=== PATIENT | male | born 1960 | race Two or more races ===

== ENCOUNTER 2018-01-18 19:59 | Inpatient (IN) | payer OTHER ==
[~2018-01-18] VITALS: Ht 167.6 cm; Wt 93.0 kg
--- NOTE | 2018-01-18 20:00 | NUR ---
PT BIBA#60 FROM HOME, PT C/O OVERALL ABD PAIN X 4 HOURS DENIES N/V/D. NAD NOTED, VSS, RESP EVEN AND UNLABORED, PT WAS PUT ON MONITOR. WAITING FOR MD ANN.
[2018-01-18] MEDS ORDERED: HYDROMORPHONE INJ 2 MG/ML DISP.SYRIN ONE ×5 (20:17→23:52)
[2018-01-18] MEDS ORDERED: ONDANSETRON HCL/PF 4 MG/2 ML VIAL ONE (20:18)
[2018-01-18 20:29] LABS: BASOPHILS # (AUTO) 0.3 /CMM (0.0-0.2); BASOPHILS % (AUTO) 2.3 % (0.0-2.0); EOSINOPHILS # (AUTO) 0.1 /CMM (0.0-0.7); EOSINOPHILS % (AUTO) 0.6 % (0.0-6.0); HEMATOCRIT 47 % (39-51); HEMOGLOBIN 16.1 g/dL (13.5-17.5); LYMPHOCYTES # (AUTO) 1.1 /CMM (0.8-4.8); LYMPHOCYTES % (AUTO) 8.9 % (20.0-44.0); MEAN CORPUSCULAR HEMOGLOBIN 32 PG (26.0-33.0); MEAN CORPUSCULAR HGB CONC 34 g/dl (31.0-36.0); MEAN CORPUSCULAR VOLUME 93 fL (80-96); MONOCYTES # (AUTO) 0.7 /CMM (0.1-1.30); MONOCYTES % (AUTO) 5.6 % (2.0-12.0); NEUTROPHILS # (AUTO) 10.5 /CMM (1.8-8.9); NEUTROPHILS % (AUTO) 82.6 % (43.0-81.0); PLATELET COUNT (AUTO) 226 /CMM (150-450); RDW COEFFICIENT OF VARIATION 12.8 (11.5-15.0); RED BLOOD CELL COUNT(AUTO) 5.08 MIL/uL (4.5-6.0); WHITE BLOOD COUNT (AUTO) 12.7 K/uL (4.3-11.0)
[2018-01-18] MEDS ORDERED: HYDROMORPHONE 1 MG/1 ML DISP.SYRIN IV ONE ×3 (20:30→21:30)
[2018-01-18] MEDS ORDERED: PIPERACILLIN /TAZOBACTAM 3.375 G in IV D5W 50 ML IV ONE (20:30)
[2018-01-18] MEDS ORDERED: ONDANSETRON HCL/PF 4 MG/2 ML VIAL IV ONE (20:30)
[2018-01-18] MEDS ORDERED: IV NS 0.9% 1,000 ML BAG IV ONE ×3 (20:30→21:30)
[2018-01-18 20:39] LABS: LIPASE 136 U/L (73-393)
[2018-01-18 20:47] LABS: TROPONIN I < 0.017 ng/mL (0.00-0.056)
[2018-01-18 20:50] LABS: CALCIUM, SERUM 9.4 mg/dL (8.5-10.1); POTASSIUM 3.6 mmol/L (3.5-5.1)
[2018-01-18] MEDS ORDERED: IOHEXOL-300 100 ML VIAL IV ONE (20:53)
[2018-01-18] MEDS ORDERED: IV NS 0.9% 250 ML IV ONE (20:53)
[2018-01-18 21:03] LABS: ALBUMIN 3.9 g/dL (3.4-5.0); BILIRUBIN,TOTAL 0.7 mg/dL (0.2-1.0); TOTAL PROTEIN, SERUM 8.1 g/dL (6.4-8.2)
[2018-01-18] MEDS ORDERED: FENTANYL PF 100MCG/2ML AMPUL IV STA (21:32)
[2018-01-18] MEDS ORDERED: FENTANYL PF 100MCG/2ML AMPUL ONE (21:36)
--- NOTE | 2018-01-18 22:24 | NUR ---
PT TO 306-2
[2018-01-18 22:45] VITALS: BP 123/69
--- NOTE | 2018-01-18 23:00 | NUR ---
AIR DEFENSE ARTILLERY SENIOR SERGEANT NOTE RECEIVED PATIENT FROM ER, PATIENT LOOKS DROWSY AND WEAK, CURRENTLY GETTING O2 3L/MIN VIA NC, NO ACUTE RESPIRATORY DISTRESS NOTED. PT COMPLAINS OF PAIN ON HIS ABDOMEN, IV PAIN MED GIVEN AT ER, PATIENT IS SCHEDULED FOR EMERGENCY SURGERY; EXPLATORY LAPAROSCOPY. FAMILY WAS INFORMED ABOUT THE PROCEDURE. GOT SIGNATURES ON THE CONSENTS AND CHECKLIST COMPLETED. IV ON LEFT WRIST 20G, 18G ON AC ARE PATENT AND INTACT. CALL LIGHT WITHIN REACH, SRX2, BED IN LOW POSITION, WILL CONTINUE TO MONITOR PATIENT.
[2018-01-18] MEDS ORDERED: BUPIVACAINE 0.25% 75 MG/30 ML VIAL ONE (23:01)
[2018-01-18] MEDS ORDERED: LIDOCAINE 0.5% HCL 50 ML VIAL ONE (23:01)
[2018-01-18] MEDS ORDERED: ANESTHESIA TRAY IN PYXIS 1 EA TRAY MC ONE (23:01)
[2018-01-18 23:06] LABS: INR 0.96 (0.87-1.13)
[2018-01-18] MEDS ORDERED: ROCURONIUM BROMIDE 50 MG/5 ML ONE (23:22)
--- NOTE | 2018-01-18 23:25 | NUR ---
METAL CASKET ASSEMBLER NOTE PATIENT WENT DOWN FOR THE SURGERY. REPORT GIVEN TO SURGERY NURSE.
[2018-01-18 23:30] VITALS: BP 123/69
[2018-01-18] MEDS ORDERED: FENTANYL PF 250MCG/5ML AMPUL ONE (23:47)
[2018-01-19] VITALS (58 sets, daily range): BP systolic 78–127; BP diastolic 45–78
[2018-01-19] MEDS ORDERED: BACITRACIN 50000 UNITS/VIAL ONE (00:37)
--- NOTE | 2018-01-19 02:57 | NUR ---
REPORT GIVEN TO [facility] FACILITIES SPECIALIST. PATIENT WILL BE TRANSFERRED TO ICU AFTER SX.
[2018-01-19] MEDS ORDERED: VANCOMYCIN 1.25 GM in IV D5W 250 ML IV ONE (03:30)
[2018-01-19] MEDS ORDERED: VANCOMYCIN 1 GM VIAL ONE ×2 (03:36→03:41)
[2018-01-19] MEDS: IV NS 0.9% 1,000 ML IV PRN (03:44)
[2018-01-19] MEDS ORDERED: ALBUMIN 5% 500 ML IV ONE (03:48)
[2018-01-19] MEDS ORDERED: LEVALBUTEROL HCL NEB 1.25 MG/0.5 ML VIAL.NEB ONE (04:11)
[2018-01-19] MEDS ORDERED: LEVALBUTEROL HCL NEB 1.25 MG/0.5 ML VIAL.NEB NEB PRN ×2 (04:30)
[2018-01-19] MEDS ORDERED: ALBUMIN 5% 12.5 GM in PREMIX 1 EA IV ONE (04:30)
[2018-01-19] MEDS ORDERED: ALBUMIN IV ONE ×4 (04:30)
[2018-01-19 04:58] LABS: BASOPHILS % (AUTO) 0.2 % (0.0-2.0); EOSINOPHILS % (AUTO) 0.1 % (0.0-6.0); HEMATOCRIT 37 % (39-51); HEMOGLOBIN 12.7 g/dL (13.5-17.5); LYMPHOCYTES # (AUTO) 0.4 /CMM (0.8-4.8); LYMPHOCYTES % (AUTO) 12.5 % (20.0-44.0); MEAN CORPUSCULAR HEMOGLOBIN 32 PG (26.0-33.0); MEAN CORPUSCULAR HGB CONC 35 g/dl (31.0-36.0); MEAN CORPUSCULAR VOLUME 94 fL (80-96); MONOCYTES # (AUTO) 0.1 /CMM (0.1-1.30); MONOCYTES % (AUTO) 4.3 % (2.0-12.0); NEUTROPHILS # (AUTO) 2.8 /CMM (1.8-8.9); NEUTROPHILS % (AUTO) 82.9 % (43.0-81.0); PLATELET COUNT (AUTO) 170 /CMM (150-450); RED BLOOD CELL COUNT(AUTO) 3.92 MIL/uL (4.5-6.0); WHITE BLOOD COUNT (AUTO) 3.4 K/uL (4.3-11.0)
[2018-01-19] MEDS ORDERED: PIPERACILLIN /TAZOBACTAM 2.25 G VIAL IV ONE (04:58)
[2018-01-19] MEDS: HYDROMORPHONE INJ 2 MG/ML DISP.SYRIN IV PRN ×4 (05:13→22:59)
[2018-01-19] MEDS: PIPERACILLIN /TAZOBACTAM 4.5 G in IV NS 0.9% 50 ML IV SCH ×4 (05:14→23:23)
[2018-01-19 05:17] LABS: ALBUMIN 2.2 g/dL (3.4-5.0); BILIRUBIN,DIRECT 0.5 mg/dL (0.0-0.2); CALCIUM, SERUM 7.4 mg/dL (8.5-10.1); CREATININE 1.1 mg/dL (0.6-1.3); MAGNESIUM 2.7 mg/dL (1.8-2.4); POTASSIUM 3.6 mmol/L (3.5-5.1); TOTAL PROTEIN, SERUM 4.7 g/dL (6.4-8.2)
[2018-01-19 05:18] LABS: THYROID STIMULATING HORMONE 1.261 uIU/mL (0.358-3.74)
--- NOTE | 2018-01-19 05:40 | NUR ---
MACHINE CELL TUBER.[id number] RECEIVING THE PT FROM OR VIA BED. S/P EX LAPAROTOMY ,SIGMOIDECTOMY , LT SIDE COLOSTOMY . BAG INTACT. ORALLY INTUBATED. PT WAS ON SIMV MODE DR HUTCHINS OIL HEATERMAN AT BED SIDE, 0340 PT BEING EXTUBATED, BREATHING TREATMENT ONCE GIVEN. PT AWAKE, ALERT. FOLLOW COMMANDS. BUTTON BREAKER OPERATOR SHOWING S TACH. OXYGEN 6L VIA MASK. SAT 98%. NO ACUTE DISTRESS NOTED. SURGICAL DRESSING INTACT. DRESSING DRY. NO LEAKING NOTED. FC PATENT. RT NARE NGT LOW INTERMITTENT SUCTION. AFEBRILE. IV RT AND LT HAND 20G. IVF NS 75ML/H,ALBUMIN 500MLIV GIVEN PER CUONG AGUILAR.PT IS NPO. WILL CONTINUE TO MONITOR VITALS.
--- NOTE | 2018-01-19 06:53 | NUR ---
HVAC DESIGNER. CRITICAL LAB CALLED FOR LACTIC ACID 4.9. PAGED DR YEUNG . NEW ORDER RECEIVED. IVF NS 1L BOLUS GIVEN.
[2018-01-19] MEDS ORDERED: IV NS 0.9% 1,000 ML IV PRN (07:00)
[2018-01-19] MEDS ORDERED: FEE PK DOSING 1 MIN EA MC ONE (07:48)
--- NOTE | 2018-01-19 08:24 | NUR ---
ICU/RN INITIAL NOTES,AM RECEIVED REPORT FROM NIGHT NURSE. RECEIVED PT ALERT, FOLLOWS COMMANDS, DROWSY FROM ANAESTHESIA. PT ON ON SIMPLE MASK, TOLERATING WELL, O2 SAT >95%, NO ACUTE DISTRESS NOTED. PT SINUS TACHYCARDIA ON TELE. PAIN LEVEL ASSESSED, PT DENIES PAIN MEDICATIONS AT THIS TIME. ALBUMIN INFUSING PER MD ORDER. RIGHT WRIST AND LEFT WRIST PIV PATENT AND INTACT, NO S/S OF INFECTION OR INFILTRATION NOTED. IV FLUIDS INFUSING ORDERED. [place] CATH IN PLACE, DRAINING YELLOW URINE. SURGICAL SITE ASSESSED, DRESSING C/D/I. COLOSTOMY BAG NOTED, MINIMAL OUTPUT NOTED. PT CURRENTLY NPO. ALL NEEDS WILL BE ATTENDED TO, SAFETY MEASURES TAKEN, BED IN LOW POSITION, SIDE RIALS UP, CALL LIGHT WITHIN REACH. WILL CONTINUE TO MONITOR AND ASSESS.
[2018-01-19] MEDS: ENOXAPARIN SODIUM 40 MG/0.4 ML DISP.SYRIN SQ SCH (09:00)
--- NOTE | 2018-01-19 09:50 | NUR ---
ICU/RN: CLARIFIED WITH REGARDING LOVENOX ORDER. PER MD TO HOLD AM DOSE.
--- NOTE | 2018-01-19 11:00 | NUR ---
RT NOTE CANCELLED ABG PER DR. HARRIS, CSO, ORDER. PATIENT STABLE WITH NO DISTRESS NOTED. PATIENT TOLERATING NASAL CANNULA WELL.
--- NOTE | 2018-01-19 16:45 | NUR ---
ICU/RN: PER MD ORDERS. PT OUT OF BED TO CHAIR. INCENTIVE SPIROMETER AT BEDSIDE. INSTRUCTED PT HOW TO USE. PT TOLERATED TRANSFER WELL, ON NASAL CANULA, NO DISTRESS. ORDERS FOR PT ORDERED. WILL FOLLOW THROUGH.
[2018-01-19] MEDS: VANCOMYCIN 1.25 GM in IV D5W 500 ML IV SCH (17:37)
--- NOTE | 2018-01-19 18:46 | NUR ---
ICU/RN ENDING NOTES,AM REPORT WILL BE ENDORSED TO NIGHT NURSE FOR CONTINUATION OF CARE. ALL NEEDS ATTENDED TO. PT ON NASAL CANULA, NO ACUTE DISTRESS NOTED AT THIS TIME. NG TO LIS, MINIMAL OUTPUT NOTED. ABDOMINAL INCISION DRESSING CLEAN, DRY AND INTACT, NO S/S OF BLEEDING NOTED. COLOSTOMY BAG IN PLACE, SANGUINOUS DRAINAGE NOTED (150 ML). FAMILY AT BEDSIDE, ALL NEEDS ATTENDED TO, TURNED REPOSITIONED, LINENS CHANGED. BED IN LOW POSITION, SIDE RAILS UP,CALL LIGHT WITHIN REACH. WILL CONTINUE CARE.
--- NOTE | 2018-01-19 19:12 | NUR ---
Patient is alert, he lives at home with family. Prior to admit- he was ambulatory and independent with adl's. Has no DME or homehealth reported.Currently in ICU pod#0 s/p explore lap for perforated bowel.Family are involved and supportive. Current plan is to dc home when discharge. Addendum: 01/19/18 at 2 by LAYLA CHI RN Amended: Links added.
--- NOTE | 2018-01-19 19:30 | NUR ---
ICU/RN NOTES: RECEIVED PT. IN BED W/ HOB ELEVATED. A/O X 4. W/ O2 @4LPM VIA N/C SAT 96%. NO S/S OF ANY RESPIRATORY DISTRESS NOTED. DENIES ANY C/O PAIN OR SOB AT PRESENT. ON TELE MONITOR W/ SINUS TACHYCARDIA W/ 115. HAS RIGHT WRIST G 20 PATENT AND INTACT W/ NO S/S OF INFECTION/INFILTRATION NOTED. HAS LT. WRIST G 20 PATENT AND INTACT W/ NO S/S OF INFECTION/INFILTRATION NOTES W/ IVF OF NS @ 75 ML/HR. NOTED W/ RIGHT NARE NGT TO LOW INTERMITTENT SUCTION. MAINTAINED NPO STATUS. SURGICAL SITE DRESSING C/D/I. COLOSTOMY BAG NOTED W/ MINIMAL OUTPUT NOTED. W/ F/C PATENT AND INTACT DRAINING DANNIE COLOR URINE VIA GRAVITY. CALL LIGHT W/ REACH. ALL NEEDS MEET AND ATTENDED.
[2018-01-20] VITALS (20 sets, daily range): BP systolic 94–124; BP diastolic 53–106
--- NOTE | 2018-01-20 04:00 | NUR ---
NEWS WRITER NOTE CONTINUITY OF CARE RECEIVED FROM YURIDIA. WILL CONTINUE TO MONITOR.
--- NOTE | 2018-01-20 04:07 | NUR ---
RN/ ICU NOTES: REPORT GIVEN TO RN. FRANCIS FOR RICHARDSON.
[2018-01-20] MEDS: HYDROMORPHONE INJ 2 MG/ML DISP.SYRIN IV PRN ×5 (04:26→22:42)
[2018-01-20] MEDS: VANCOMYCIN 1.25 GM in IV D5W 500 ML IV SCH ×2 (04:30→18:47)
[2018-01-20] MEDS: IV NS 0.9% 1,000 ML IV PRN ×2 (04:43→22:34)
[2018-01-20] MEDS: PIPERACILLIN /TAZOBACTAM 4.5 G in IV NS 0.9% 50 ML IV SCH ×4 (05:32→23:07)
[2018-01-20 05:47] LABS: BASOPHILS # (AUTO) 0.2 /CMM (0.0-0.2); BASOPHILS % (AUTO) 1.9 % (0.0-2.0); HEMATOCRIT 35 % (39-51); HEMOGLOBIN 11.9 g/dL (13.5-17.5); LYMPHOCYTES # (AUTO) 0.5 /CMM (0.8-4.8); LYMPHOCYTES % (AUTO) 5.5 % (20.0-44.0); MEAN CORPUSCULAR HEMOGLOBIN 32 PG (26.0-33.0); MEAN CORPUSCULAR HGB CONC 34 g/dl (31.0-36.0); MEAN CORPUSCULAR VOLUME 94 fL (80-96); MONOCYTES # (AUTO) 0.4 /CMM (0.1-1.30); MONOCYTES % (AUTO) 3.7 % (2.0-12.0); NEUTROPHILS # (AUTO) 8.8 /CMM (1.8-8.9); NEUTROPHILS % (AUTO) 88.9 % (43.0-81.0); PLATELET COUNT (AUTO) 149 /CMM (150-450); RDW COEFFICIENT OF VARIATION 13.5 (11.5-15.0); RED BLOOD CELL COUNT(AUTO) 3.68 MIL/uL (4.5-6.0); WHITE BLOOD COUNT (AUTO) 9.9 K/uL (4.3-11.0)
[2018-01-20 06:15] LABS: CALCIUM, SERUM 7.3 mg/dL (8.5-10.1); CREATININE 0.9 mg/dL (0.6-1.3); MAGNESIUM 2.3 mg/dL (1.8-2.4); PHOSPHORUS 2.2 mg/dL (2.5-4.9); POTASSIUM 3.8 mmol/L (3.5-5.1)
--- NOTE | 2018-01-20 07:27 | NUR ---
ICU/RN INITIAL NOTES,AM RECEIVED REPORT FROM NIGHT NURSE. RECEIVED PT ALERT, FOLLOWS COMMANDS. PT ON NASAL CANULA, NO ACUTE DISTRESS NOTED. PT SINUS TACHYCARDIA ON TELE. RIGHT WRIST AND LEFT WRIST PIV PATENT AND INTACT, NO S/S OF INFECTION OR INFILTRATION NOTED. IV FLUIDS INFUSING ORDERED. [place] CATH IN PLACE, DRAINING YELLOW URINE. SURGICAL SITE ASSESSED, DRESSING C/D/I. COLOSTOMY BAG NOTED. PT CURRENTLY NPO NG TO LIS. ALL NEEDS WILL BE ATTENDED TO, SAFETY MEASURES TAKEN, BED IN LOW POSITION, SIDE RIALS UP, CALL LIGHT WITHIN REACH. WILL CONTINUE TO MONITOR AND ASSESS.
--- NOTE | 2018-01-20 07:39 | NUR ---
TRANSCRIPTION MANAGER CLOSING NOTE NO SIGNIFICANT CHANGES OVERNIGHT. PAIN MONITORED AND MANAGED NEEDED. PATIENT RESTING AT THIS TIME. NO N/V. NO RESPIRATORY DISTRESS NOTED. WITH RIGHT NGT ON LOW INTERMITTENT SUCTION. F/C PATENT AND INTACT, DRAINING BY GRAVITY. SIDE RAILS UP AND LOCKED. BED KEPT AT LOWEST POSITION. CALL LIGHT KEPT WITHIN EASY REACH. CONTINUITY OF CARE ENDORSED TO AM NURSE.
[2018-01-20] MEDS: ENOXAPARIN SODIUM 40 MG/0.4 ML DISP.SYRIN SQ SCH (08:35)
[2018-01-20] MEDS ORDERED: Sodium Phosphate 7.5 MMOL in IV D5W 100 ML IV ONE (12:00)
--- NOTE | 2018-01-20 14:00 | NUR ---
ICU/RN: ORDERS FROM TO TRANSFER PT TO [facility]. WILL CONTINUE LIS VIA NG TUBE. PT REMAINS NPO. WILL FOLLOW THROUGH
--- NOTE | 2018-01-20 16:00 | NUR ---
ICU/RN: BED OUT OF BED TO CHAIR. TOLERATED WELL. VSS. NO DISTRESS. WILL CONTINUE TO MONITOR
--- NOTE | 2018-01-20 18:30 | NUR ---
ICU/RN: PT TRANSFERRED TO [facility] 112-1 VIA BED AND ACLS GUIDELINES. FAMILY AT BEDSIDE. ALL MEDICATIONS AND BELONGINGS TRANSFERRED WITH PT. VSS. NO DISTRESS. WILL CONTINUE CARE. ENDORSED REPORT TO NICOLASA HILLS.
--- NOTE | 2018-01-20 18:30 | NUR ---
RN CLOSING NOTES: REC'D PT FROM FISCAL ECONOMISTREINIER KUMAR. PT TRANSFERRED VIA BED ACCOMPANIED BY FAMILY, ADMITTED AT RM 112/1, [facility] STATUS. PT IS A/O X 3, SLEEPY D/T PAIN MEDS REC'D. HAS NGT ON R NARE, CONNECTED TO LOW INTERMITTENT SUCTIONING. PLACED ON NC AT 2LPM, NO SOB. ON TELEMONITOR, ST W/ HR 113. HAS 2 IV LINE ACCESS: R WRIST G20, SL, FLUSHING WELL. L WRIST G20 PL, NOTED SWELLING/INFILTRATION, NO VENOUS RETURN - REMOVED, PRESSURE DRESSING APPLIED. HAS LEFT COLOSTOMY BAG INTACT, NO OUTPUT NOTED. HAS FC PATENT & INTACT. PT KEPT WELL RESTED. NEEDS ATTENDED. BED KEPT LOW & IN LOCKED POS. CALL LIGHT PLACED W/IN REACH. ENDORSED TO PM RN FOR RICHARDSON.
--- NOTE | 2018-01-20 20:00 | NUR ---
RN INITIAL NOTES: RECEIVED PT. IN BED W/ HOB ELEVATED. A/O X 4. W/ O2 @3L VIA N/C SAT 96%. NO S/S OF ANY RESPIRATORY DISTRESS NOTED. ON TELE MONITOR W/ SINUS TACHYCARDIA W/ 1O4. HAS LT. WRIST G 20 PATENT AND INTACT W/ NO S/S OF INFECTION/INFILTRATION NOTES W/ IVF OF NS @ 75 ML/HR. NOTED W/ RIGHT NARE NGT TO LOW INTERMITTENT SUCTION. MAINTAINED NPO STATUS. SURGICAL SITE DRESSING C/D/I. COLOSTOMY BAG NOTED W/ MINIMAL OUTPUT NOTED. W/ F/C PATENT AND INTACT DRAINING DANNIE COLOR URINE VIA GRAVITY. CALL LIGHT W/ REACH. WILL CONT TO MONITOR.
[2018-01-20] MEDS: ACETAMINOPHEN 650 MG/SUPP.RECT RC PRN ×2 (22:34→22:46)
[2018-01-21] VITALS: BP 98/53
[2018-01-21 04:00] VITALS: BP 107/70
[2018-01-21] MEDS: HYDROMORPHONE INJ 2 MG/ML DISP.SYRIN IV PRN ×4 (04:08→19:37)
[2018-01-21] MEDS: VANCOMYCIN 1.25 GM in IV D5W 500 ML IV SCH ×2 (04:10→18:15)
--- NOTE | 2018-01-21 06:22 | NUR ---
RN CLOSING NOTES NO SIGNIFICANT CHANGES OVERNIGHT. PAIN MONITORED AND MANAGED NEEDED. PATIENT RESTING AT THIS TIME. NO N/V. NO RESPIRATORY DISTRESS NOTED. WITH RIGHT NGT ON LOW INTERMITTENT SUCTION. F/C PATENT AND INTACT, DRAINING BY GRAVITY. SIDE RAILS UP AND LOCKED. BED KEPT AT LOWEST POSITION. CALL LIGHT KEPT WITHIN EASY REACH. CONTINUITY OF CARE ENDORSED TO AM NURSE.
[2018-01-21] MEDS: PIPERACILLIN /TAZOBACTAM 4.5 G in IV NS 0.9% 50 ML IV SCH ×3 (07:03→17:35)
[2018-01-21 07:08] LABS: CALCIUM, SERUM 7.8 mg/dL (8.5-10.1); CREATININE 0.9 mg/dL (0.6-1.3); POTASSIUM 3.3 mmol/L (3.5-5.1)
--- NOTE | 2018-01-21 07:30 | NUR ---
OPENING NOTES RECEIVED PT. IN BED W/ HOB ELEVATED. A/O X 4. W/ O2 @3L VIA N/C SAT 96%. NO S/S OF ANY RESPIRATORY DISTRESS NOTED. ON TELE MONITOR W/ SINUS TACHYCARDIA 1O5. HAS LT. WRIST G 20 PATENT AND INTACT W/ NO S/S OF INFECTION/INFILTRATION. MAINTAINCE DRIP OF NS @ 75 ML/HR. PT WITH RIGHT NARE NGT TO LOW INTERMITTENT SUCTION. MAINTAINED NPO STATUS. SURGICAL SITE DRESSING C/D/I. COLOSTOMY BAG NOTED MINIMAL OUTPUT NOTED. PATENT WITH [place] CATHER AND INTACT DRAINING DANNIE COLOR URINE VIA GRAVITY. CALL LIGHT W/ REACH. WILL CONT TO MONITOR.
[2018-01-21 08:00] VITALS: BP 100/65
[2018-01-21 08:03] LABS: BASOPHILS # (AUTO) 0.1 /CMM (0.0-0.2); BASOPHILS % (AUTO) 0.5 % (0.0-2.0); EOSINOPHILS # (AUTO) 0.1 /CMM (0.0-0.7); EOSINOPHILS % (AUTO) 0.7 % (0.0-6.0); HEMATOCRIT 32 % (39-51); HEMOGLOBIN 11.1 g/dL (13.5-17.5); LYMPHOCYTES # (AUTO) 0.9 /CMM (0.8-4.8); LYMPHOCYTES % (AUTO) 8.1 % (20.0-44.0); MEAN CORPUSCULAR HEMOGLOBIN 33 PG (26.0-33.0); MEAN CORPUSCULAR HGB CONC 35 g/dl (31.0-36.0); MEAN CORPUSCULAR VOLUME 94 fL (80-96); MONOCYTES # (AUTO) 0.4 /CMM (0.1-1.30); MONOCYTES % (AUTO) 4.2 % (2.0-12.0); NEUTROPHILS % (AUTO) 86.5 % (43.0-81.0); PLATELET COUNT (AUTO) 162 /CMM (150-450); RDW COEFFICIENT OF VARIATION 13.6 (11.5-15.0); RED BLOOD CELL COUNT(AUTO) 3.36 MIL/uL (4.5-6.0); WHITE BLOOD COUNT (AUTO) 10.5 K/uL (4.3-11.0)
[2018-01-21] MEDS: ENOXAPARIN SODIUM 40 MG/0.4 ML DISP.SYRIN SQ SCH (09:02)
[2018-01-21 12:00] VITALS: BP_SYST 102; BP_SYST 106; BP_DIAS 56; BP_DIAS 71
[2018-01-21 12:15] LABS: LYMPHOCYTES % (MANUAL) 5 % (16-48); MONOCYTES % (MANUAL) 4 % (0-11.0)
[2018-01-21 12:16] LABS: BAND % (MANUAL) 3 % (0.0-5.0); NEUTROPHILS % (MANUAL) 88 (42-76)
[2018-01-21] MEDS: POTASSIUM CL. PREMIX PERIPHER. 50 ML IV SCH ×2 (13:24→14:36)
[2018-01-21 16:00] VITALS: BP_SYST 102; BP_SYST 99; BP_DIAS 55; BP_DIAS 56
[2018-01-21] MEDS: IV NS 0.9% 1,000 ML IV PRN (18:20)
--- NOTE | 2018-01-21 18:46 | NUR ---
CLOSING PT FREE FROM INFECTION [place] DRAINING BY GRAVITY. SURGEON HANSEL EVALUATED PT NG TUBE REMOVE. ABDOMINAL DRESSING REMOVED AND AREA CLEANED WITH BETADINE PT WITH OUT DISTRESS AFEBRILE. CONTINUATION OF CARE ENDORSED TO ASSOCIATE MUSIC PROFESSOR RN.
--- NOTE | 2018-01-21 19:15 | NUR ---
RN OPENING NOTES: RECEIVED PATIENT ON BED AWAKE AND ALERTX4, NOT IN APPARENT DISTRESS. st ON MONITOR HR AT 100'S. ON O2 THERAPY TOLERATED WELL. PATIENT WANTED TO REMOVE O2 FOR NOW HE CLAIMS HE IS BREATHING OK. TO MONITOR PATIENT OFF O2. WITH COMPLAINTS OF PAIN 7-8/10 OVER ABDOMINAL (INCISION) AREA. TO RENDER PAIN MEDS ORDERED. TO MONITOR FOR RESPONSE TO PAIN MEDS. IV ACCESS ON LEFT AND RIGHT HAND INTACT, IVF ORDERED. SAFETY MEASURES ENSURED. FAMILY AT BEDSIDE. CALL LIGHT IN REACH. CONTINUOUSLY MONITORED.
--- NOTE | 2018-01-21 19:30 | NUR ---
RN NOTES: NOTED WITH REDNESS; RASH ON LEFT ABDOMINAL/ TRUNK AREA. PATIENT DENIES ITCHING. TO MONITOR REDNESS.
[2018-01-21 20:00] VITALS: BP 128/75
[2018-01-22] VITALS: BP 128/80
[2018-01-22] MEDS: PIPERACILLIN /TAZOBACTAM 4.5 G in IV NS 0.9% 50 ML IV SCH ×5 (00:23→23:55)
[2018-01-22] MEDS: VANCOMYCIN 1.25 GM in IV D5W 500 ML IV SCH ×3 (01:40→17:53)
[2018-01-22] MEDS: ACETAMINOPHEN 325 MG TABLET PO PRN (02:41)
[2018-01-22] MEDS: ONDANSETRON HCL/PF 4 MG/2 ML VIAL IVP PRN ×2 (02:41→14:28)
[2018-01-22] MEDS: HYDROMORPHONE INJ 2 MG/ML DISP.SYRIN IV PRN ×4 (02:46→23:49)
--- NOTE | 2018-01-22 02:46 | NUR ---
RN NOTES: WITH COMPLAINTS OF SEVERE HEADACHE RATED 8-9/10 AT THIS TIME, MAINLY ON FRONTAL AREA CHARACTERIZED THROBBING PAIN. PRN PAIN MEDS GIVEN. ALSO FEELING NAUSEOUS AND FEELS LIKE HE HAS "HEART BURN". ZOFRAN GIVEN PRN FOR NAUSEA AND TO MONITOR FOR RESPONSE TO PRN MEDICATIONS.
[2018-01-22 04:00] VITALS: BP 116/64
--- NOTE | 2018-01-22 06:33 | NUR ---
RN CLOSING NOTES: PATIENT REMAINED IN BED AT THIS TIME. DENIES OF ANY PAIN AND VERBALIZES HIS HEADACHE IS GONE AND IS "SO MUCH BETTER NOW." REFUSING TO DRAW LABS AT THIS TIME DESPITE EXPLANATION OF RISK AND BENEFITS AND NECESSITY OF DIAGNOSTIC EXAM. PER PATIENT THEY CAN COME BACK MAYBE LATER ON THE DAY. DRUPAL PROGRAMMER ROSSANA MADE AWARE. FOR REPRESENTATIVE PHLEBOTOMY SERVICES TO COME BACK LATER. SKIN CARE RENDERED. ON AND OFF OF O2, NOT IN APPARENT DISTRESS. REMAINED SR-ST ON MONITOR. COLOSTOMY BAG REMAINED INTACT WITH SEROSANGUINOUS FLUID DRAINING, NO GAS NOTED AT THIS TIME. PATIENT ON A CHAIR AT THIS TIME, OOB. FC INTACT, UO DRAINED AND DOCUMENTED. SKIN CARE AND INCISION SITE CARE RENDERED. CONTINUOUSLY MONITORED. IVF ORDERED, IV ATB GIVEN. TO ENDORSE TO AM SHIFT RN.
--- NOTE | 2018-01-22 07:12 | NUR ---
RN INITIAL NOTES: Rec'd pt asleep on bed, easily arousable, A/O x 4, c/o discomfort despite of pain medication but is tolerable. On room air, no SOB. On telemonitor, SR 80bpm. Has 2 IV line access: L hand G20 & R hand G20, both patent & intact, no s/sx of infection/infiltration noted. On L hand G20 has NS x 75 cc/hr infusing well. Has FC patent & intact draining to julissa urine output. Surgical site on the abdomen with suture clean & dry. Has colostomy on left abdomen w/ bag in place. Provided comfort & safety measures. Bed kept low & in locked pos. Call light placed w/in reach. Will continue to monitor & attend pt needs.
[2018-01-22 08:00] VITALS: BP 121/76
[2018-01-22] MEDS: ENOXAPARIN SODIUM 40 MG/0.4 ML DISP.SYRIN SQ SCH (09:14)
[2018-01-22 12:00] VITALS: BP 133/82
--- NOTE | 2018-01-22 13:00 | NUR ---
RN NOTES: Pt seen & examined by DANISH Foster w/ orders made & carried out. MAT CUTTER was updated about pt's condition.
[2018-01-22 16:00] VITALS: BP 125/74
--- NOTE | 2018-01-22 16:00 | NUR ---
RN NOTES: Pt requesting juice and if clear liquid diet can be started. Notified Dr. Warner & Kristin, BACKGROUND CHECK COORDINATOR w/ orders may start clear liquid diet. Dr. Warner updated that pt noted to have output on colostomy bag (soft light brownish, 50 cc) as well as passing out of gas. Pt noted active bowel sounds upon auscultation.
[2018-01-22 17:10] LABS: BASOPHILS # (AUTO) 0.1 /CMM (0.0-0.2); BASOPHILS % (AUTO) 1.3 % (0.0-2.0); EOSINOPHILS # (AUTO) 0.3 /CMM (0.0-0.7); EOSINOPHILS % (AUTO) 3.7 % (0.0-6.0); HEMATOCRIT 37 % (39-51); HEMOGLOBIN 12.5 g/dL (13.5-17.5); LYMPHOCYTES # (AUTO) 0.9 /CMM (0.8-4.8); LYMPHOCYTES % (AUTO) 9.9 % (20.0-44.0); MEAN CORPUSCULAR HEMOGLOBIN 32 PG (26.0-33.0); MEAN CORPUSCULAR HGB CONC 34 g/dl (31.0-36.0); MEAN CORPUSCULAR VOLUME 93 fL (80-96); MONOCYTES # (AUTO) 0.9 /CMM (0.1-1.30); MONOCYTES % (AUTO) 10.8 % (2.0-12.0); NEUTROPHILS # (AUTO) 6.4 /CMM (1.8-8.9); NEUTROPHILS % (AUTO) 74.3 % (43.0-81.0); PLATELET COUNT (AUTO) 242 /CMM (150-450); RDW COEFFICIENT OF VARIATION 13.6 (11.5-15.0); RED BLOOD CELL COUNT(AUTO) 3.93 MIL/uL (4.5-6.0); WHITE BLOOD COUNT (AUTO) 8.6 K/uL (4.3-11.0)
--- NOTE | 2018-01-22 17:30 | NUR ---
RN NOTES: Pt seen & examined by Dr. Warner. MD updated about pt condition. D/T some redness on the sx site, MD did remove some danial on the lower abdomen, cleanse it & pack. RN covered it w/ dry gauze & ABD pads per MD's order. Procedure was done aseptically. Wound specimen from the abdomen was sent to lab for cx. FC removed as ordered. Pt was able to urinate w/o difficulty. Per MD, may advance diet tomorrow if tolerated.
[2018-01-22 17:34] LABS: CALCIUM, SERUM 8.3 mg/dL (8.5-10.1); CREATININE 0.7 mg/dL (0.6-1.3); POTASSIUM 3.2 mmol/L (3.5-5.1)
[2018-01-22] MEDS: IV NS 0.9% 1,000 ML IV PRN (17:46)
[2018-01-22] MEDS: HYDROCODONE/APAP 10/325MG 1 EA TABLET PO PRN (17:53)
--- NOTE | 2018-01-22 19:00 | NUR ---
RN CLOSING NOTES: Pt sitting comfortably on bedside chair. Pt tolerated room air, no SOB. On telemonitor, still SR. 2 IV line access: RFA G22 & R hand G20, both kept patent & intact, no s/sx of infection/infiltration noted. On RFA G22 has NS x 75 cc/hr infusing well. Colostomy on left abdomen w/ bag kept in place. Pt kept well rested. Needs attended. Bed kept low & in locked pos. Call light placed w/in reach. at bedside. Endorsed to PM RN for RICHARDSON.
--- NOTE | 2018-01-22 19:30 | NUR ---
RN [facility] INITIAL NOTE RECEIVED PT SITTING IN CHAIR RESTING COMFORTABLY, AOX3, SPEECH CLEAR, ABLE TO MAKE NEEDS KNOWN, ON TELE SR 94, R HAND #20G PATENT FLUSHING WELL WITH NS AT 75ML/HR, RFA #22G PATENT FLUSHING WELL, SITES CDI. AMBULATORY BRP, SKIN KEPT CLEAN AND DRY. WILL CONTINUE TO MONITOR FOR ANY CHANGES IN CONDITION.
[2018-01-22 20:00] VITALS: BP 107/63
[2018-01-23] VITALS (7 sets, daily range): BP systolic 110–145; BP diastolic 69–98
--- NOTE | 2018-01-23 00:13 | NUR ---
RN [facility] NOTE PER PATIENT REQUEST CONDOM CATHETER PLACED, PT STATES "IS TOO TIRED TO KEEP GETTING UP TO BATHROOM" URINAL AT BEDSIDE PATIENT DECLINED REQUESTING CATHETER.
[2018-01-23] MEDS: VANCOMYCIN 1.25 GM in IV D5W 500 ML IV SCH ×3 (01:16→18:07)
[2018-01-23] MEDS: HYDROMORPHONE INJ 2 MG/ML DISP.SYRIN IV PRN ×5 (04:02→21:37)
[2018-01-23] MEDS: PIPERACILLIN /TAZOBACTAM 4.5 G in IV NS 0.9% 50 ML IV SCH ×4 (05:32→23:24)
[2018-01-23] MEDS: HYDROCODONE/APAP 10/325MG 1 EA TABLET PO PRN (05:35)
[2018-01-23 07:08] LABS: CALCIUM, SERUM 8.2 mg/dL (8.5-10.1); CREATININE 0.7 mg/dL (0.6-1.3); POTASSIUM 3.2 mmol/L (3.5-5.1)
--- NOTE | 2018-01-23 07:12 | NUR ---
RN INITIAL NOTES: Rec'd pt asleep on bed, easily arousable, A/O x 4, c/o discomfort/ pain / weakness. On room air, no SOB. On telemonitor, SR. Has 2 IV line access: L hand G20 & R hand G20, both patent & intact, no s/sx of infection/infiltration noted. On L hand G20 has NS x 75 cc/hr infusing well. Has condom cath noted leaking. Surgical site on the abdomen with suture clean & dry, w/ some redness around the sx site. Has colostomy on left abdomen w/ bag in place, no output noted. Bowel sounds active. Provided comfort & safety measures. Bed kept low & in locked pos. Call light placed w/in reach. Will continue to monitor & attend pt needs.
[2018-01-23] MEDS: ENOXAPARIN SODIUM 40 MG/0.4 ML DISP.SYRIN SQ SCH (08:18)
[2018-01-23] MEDS ORDERED: POTASSIUM CHLORIDE 20 MEQ TAB.PRT.SR PO ONE ×2 (11:30→17:00)
--- NOTE | 2018-01-23 12:40 | NUR ---
RN NOTES: 1240H Dilaudid PRN IVP wasn't able to give to the pt d/t IV line infiltration. Notified pharmacy, spoke w/ Viktoria, will take another Dilaudid PRN IVP.
--- NOTE | 2018-01-23 13:10 | NUR ---
RN NOTES: Dr. Warner updated about pt'c current condition. Pt verbalizing pain, weakness, and heartburn. Awaiting response.
--- NOTE | 2018-01-23 13:20 | NUR ---
RN NOTES: Called Dr. Caldwell office re: f/u about consultation. Awaiting call back. Addendum: 01/23/18 at 1850 by NICOLASA JARAMILLO RN Addendum: Dr. Caldwell's elementary secretary called back & said that per MD, pt was already been evaluated and he will see pt tomorrow. Pt made aware.
--- NOTE | 2018-01-23 16:00 | NUR ---
RN NOTES: Pt seen & examined by DANISH Foster w/ orders made & carried out. BEE RANCHER updated about pt's current condition - heartburn, weakness & not feeling good. BEE RANCHER ordered CT scan of the abdomen and pelvis w/ contrast.
[2018-01-23] MEDS ORDERED: IOHEXOL-300 100 ML VIAL IV ONE (16:59)
--- NOTE | 2018-01-23 17:00 | NUR ---
RN NOTES: Pt seen & examined by Dr. Warner. Per MD add additional 40 meqs of K dur PO. Start pt on Flomax 0.4 mg PO HS. May do CT scan of the abdomen & pelvis w/ contrast. Reinforce IS and f/u ostomy teaching. Per MD, add CBC in AM labs today. Wound care: Cleanse w/ NS the surgical site w/ danial and paint w/ betadine. On the lower abdomen (open sx part), pack w/ iodoform packing 1/2 and cover w/ dry dressing and ABD pad q shift. MD was able to check pt's sx site. All concern addressed by .
[2018-01-23 17:29] LABS: BASOPHILS # (AUTO) 0.1 /CMM (0.0-0.2); BASOPHILS % (AUTO) 1.7 % (0.0-2.0); EOSINOPHILS # (AUTO) 0.4 /CMM (0.0-0.7); EOSINOPHILS % (AUTO) 5.3 % (0.0-6.0); HEMATOCRIT 36 % (39-51); HEMOGLOBIN 12.1 g/dL (13.5-17.5); LYMPHOCYTES % (AUTO) 13.9 % (20.0-44.0); MEAN CORPUSCULAR HEMOGLOBIN 32 PG (26.0-33.0); MEAN CORPUSCULAR HGB CONC 34 g/dl (31.0-36.0); MEAN CORPUSCULAR VOLUME 94 fL (80-96); MONOCYTES # (AUTO) 0.7 /CMM (0.1-1.30); MONOCYTES % (AUTO) 9.4 % (2.0-12.0); NEUTROPHILS # (AUTO) 5.1 /CMM (1.8-8.9); NEUTROPHILS % (AUTO) 69.7 % (43.0-81.0); PLATELET COUNT (AUTO) 210 /CMM (150-450); RDW COEFFICIENT OF VARIATION 14.2 (11.5-15.0); RED BLOOD CELL COUNT(AUTO) 3.78 MIL/uL (4.5-6.0); WHITE BLOOD COUNT (AUTO) 7.3 K/uL (4.3-11.0)
--- NOTE | 2018-01-23 18:24 | NUR ---
RN NOTES: Dilaudid 2 mg given as PRN med. Unable to scan medication.
--- NOTE | 2018-01-23 19:00 | NUR ---
RN CLOSING NOTES: Pt resting on bed at this time. Pt on & off room air & NC at 2lpm, no SOB. IS health teaching reinforced. On telemonitor, still SR. R hand G20, PL kept patent & intact, no s/sx of infection/infiltration noted, has NS x 75 cc/hr infusing well. Colostomy on left abdomen w/ bag kept in place, drained yellow brownish output, 20cc. Wound care done as instructed by MD. CT scan result relayed to MD w/ NNO. Pt kept well rested. Needs attended. Bed kept low & in locked pos. Call light placed w/in reach. at bedside. Endorsed to PM RN for RICHARDSON.
--- NOTE | 2018-01-23 19:30 | NUR ---
RN [facility] INITIAL NOTE RECEIVED PATIENT RESTING COMFORTABLY WITH HOB ELEVATED, AOX3, SPEECH IS CLEAR, ABLE TO MAKE NEEDS KNOWN, ON TELE SR/ST 90-100, R HAND #20G PATENT FLUSHING WELL WITH NS AT 75ML/HR, SITE CDI. DIAPER IN PLACE DUE TO REPORTED LETHARGY AND WEAKNESS, WILL ENCOURAGE INCENTIVE SPIROMETER USE AND MOVEMENT, SKIN KEPT CLEAN AND DRY, CHASE OPEN TO AIR LOWER ABDOMEN COVERED WITH DRESSING, DRY AND INTACT. WILL CONTINUE TO MONITOR FOR ANY CHANGES IN CONDITION.
[2018-01-23] MEDS: TAMSULOSIN 0.4 MG CAP.SR.24H PO SCH (21:36)
[2018-01-24] VITALS (7 sets, daily range): BP systolic 121–142; BP diastolic 69–82
[2018-01-24] MEDS: VANCOMYCIN 1.25 GM in IV D5W 500 ML IV SCH ×2 (01:38→10:52)
[2018-01-24] MEDS: HYDROMORPHONE INJ 2 MG/ML DISP.SYRIN IV PRN ×6 (02:54→23:23)
[2018-01-24] MEDS: HYDROCODONE/APAP 10/325MG 1 EA TABLET PO PRN (04:08)
[2018-01-24] MEDS: PIPERACILLIN /TAZOBACTAM 4.5 G in IV NS 0.9% 50 ML IV SCH ×5 (05:23→23:23)
[2018-01-24] MEDS: ACETAMINOPHEN 325 MG TABLET PO PRN (06:01)
[2018-01-24 06:35] LABS: CALCIUM, SERUM 8.2 mg/dL (8.5-10.1); CREATININE 0.7 mg/dL (0.6-1.3); POTASSIUM 3.4 mmol/L (3.5-5.1)
[2018-01-24] MEDS: ENOXAPARIN SODIUM 40 MG/0.4 ML DISP.SYRIN SQ SCH (08:46)
[2018-01-24] MEDS: IV NS 0.9% 1,000 ML IV PRN (10:53)
[2018-01-24] MEDS ORDERED: POTASSIUM CHLORIDE 20 MEQ TAB.PRT.SR PO SCH (11:00)
--- NOTE | 2018-01-24 11:45 | NUR ---
RN NOTE SPOKE WITH MAIRA PAPPAS REGARDING PAIN IN ABDOMEN AFTER 2H PAIN MED GIVEN, SHE SAID TO GIVE ONE DOSE OF DILAUDID NOW. SHE WILL FOLLOW UP WITH DR MARTINEZ.
[2018-01-24] MEDS: SENNOSIDES/DOCUSATE SODIUM 1 TAB TABLET PO SCH (13:08)
[2018-01-24] MEDS ORDERED: MAGNESIUM HYDROXIDE 30 ML UDC PO PRN (14:30)
[2018-01-24] MEDS: SIMETHICONE 80 MG TAB.CHEW PO PRN ×3 (16:08→22:21)
--- NOTE | 2018-01-24 19:28 | NUR ---
rn note okay to give 2 mg dilaudid for pain now per matthew albright.
--- NOTE | 2018-01-24 20:00 | NUR ---
RN TEL INITIAL NOTE RECEIVED PATIENT RESTING COMFORTABLY WITH HOB ELEVATED, AOX3, SPEECH IS CLEAR, ABLE TO MAKE NEEDS KNOWN, ON TELE SR 88, R HAND #20G PATENT FLUSHING WELL WITH NS AT 75ML/HR, SITE CDI. DIAPER IN PLACE DUE TO REPORTED LETHARGY AND WEAKNESS, WILL ENCOURAGE INCENTIVE SPIROMETER USE AND MOVEMENT, SKIN KEPT CLEAN AND DRY, CHASE OPEN TO AIR LOWER ABDOMEN COVERED WITH DRESSING, DRY AND INTACT. WILL CONTINUE TO MONITOR FOR ANY CHANGES IN CONDITION.
[2018-01-24] MEDS: TAMSULOSIN 0.4 MG CAP.SR.24H PO SCH (22:21)
[2018-01-25] VITALS: BP 138/82
[2018-01-25] MEDS: SIMETHICONE 80 MG TAB.CHEW PO PRN ×2 (03:21→09:32)
[2018-01-25] MEDS: HYDROMORPHONE INJ 2 MG/ML DISP.SYRIN IV PRN ×2 (03:27→09:32)
[2018-01-25 04:00] VITALS: BP 123/74
[2018-01-25] MEDS: PIPERACILLIN /TAZOBACTAM 4.5 G in IV NS 0.9% 50 ML IV SCH ×2 (05:53→11:13)
[2018-01-25] MEDS: IV NS 0.9% 1,000 ML IV PRN (06:02)
[2018-01-25] MEDS: HYDROCODONE/APAP 10/325MG 1 EA TABLET PO PRN (06:03)
[2018-01-25 06:31] LABS: CALCIUM, SERUM 8.1 mg/dL (8.5-10.1); CREATININE 0.7 mg/dL (0.6-1.3); MAGNESIUM 1.9 mg/dL (1.8-2.4); PHOSPHORUS 3.1 mg/dL (2.5-4.9); POTASSIUM 3.3 mmol/L (3.5-5.1)
[2018-01-25 06:36] LABS: BASOPHILS % (AUTO) 0.2 % (0.0-2.0); EOSINOPHILS # (AUTO) 0.4 /CMM (0.0-0.7); HEMATOCRIT 33 % (39-51); HEMOGLOBIN 11.7 g/dL (13.5-17.5); LYMPHOCYTES # (AUTO) 1.5 /CMM (0.8-4.8); LYMPHOCYTES % (AUTO) 15.1 % (20.0-44.0); MEAN CORPUSCULAR HEMOGLOBIN 33 PG (26.0-33.0); MEAN CORPUSCULAR HGB CONC 36 g/dl (31.0-36.0); MEAN CORPUSCULAR VOLUME 93 fL (80-96); MONOCYTES # (AUTO) 0.9 /CMM (0.1-1.30); MONOCYTES % (AUTO) 8.6 % (2.0-12.0); NEUTROPHILS # (AUTO) 7.1 /CMM (1.8-8.9); NEUTROPHILS % (AUTO) 72.1 % (43.0-81.0); PLATELET COUNT (AUTO) 242 /CMM (150-450); RDW COEFFICIENT OF VARIATION 14.1 (11.5-15.0); RED BLOOD CELL COUNT(AUTO) 3.53 MIL/uL (4.5-6.0); WHITE BLOOD COUNT (AUTO) 9.9 K/uL (4.3-11.0)
--- NOTE | 2018-01-25 07:00 | NUR ---
RN NOTE RECEIVED PATIENT ON BED, A/Ox4, RESPIRATION EVEN AND UNLABORED, L AC IV SITE G 20 CDI, WITH IVF NS AT 75CC/HR RUNNING , RESTING COMFORTABLY WITH HOB ELEVATED, SKIN KEPT CLEAN AND DRY, CHASE OPEN TO AIR LOWER ABDOMEN COVERED WITH DRESSING, DRY AND INTACT. SR UP x3, CALL LIGHT WITHIN EASY REACH, BED LOCKED AND IN LOWEST POSITION , WILL CONTINUE TO MONITOR
--- NOTE | 2018-01-25 07:27 | NUR ---
RN TEL CLOSING NOTE ENDORSED PATIENT RESTING COMFORTABLY WITH HOB ELEVATED, AOX3, SPEECH IS CLEAR, ABLE TO MAKE NEEDS KNOWN, ON TELE SR 88, R HAND #20G PATENT FLUSHING WELL WITH NS AT 75ML/HR, SITE CDI. DIAPER IN PLACE DUE TO REPORTED LETHARGY AND WEAKNESS, WILL ENCOURAGE INCENTIVE SPIROMETER USE AND MOVEMENT, SKIN KEPT CLEAN AND DRY, CHASE OPEN TO AIR LOWER ABDOMEN COVERED WITH DRESSING, DRY AND INTACT. WILL CONTINUE TO MONITOR FOR ANY CHANGES IN CONDITION.
[2018-01-25 08:00] VITALS: BP 113/57
[2018-01-25] MEDS: SENNOSIDES/DOCUSATE SODIUM 1 TAB TABLET PO SCH (08:14)
[2018-01-25] MEDS: ENOXAPARIN SODIUM 40 MG/0.4 ML DISP.SYRIN SQ SCH (08:14)
[2018-01-25] MEDS ORDERED: AMOX-430 PO (10:41)
[2018-01-25] MEDS ORDERED: HYDR-552 PO (10:41)
[2018-01-25] MEDS ORDERED: DOCU-141 PO (10:41)
[2018-01-25] MEDS ORDERED: MAGN400O21 PO (10:41)
[2018-01-25] MEDS ORDERED: POTASSIUM CHLORIDE 20 MEQ TAB.PRT.SR PO ONE (11:00)
--- NOTE | 2018-01-25 12:12 | NUR ---
RN NOTES DISCHARGE INSTRUCTION AND EXTRA COLOSTOMY BAGES GIVEN PT. PT. VERBALIZES UNDERSTANDING,
--- NOTE | 2018-01-25 13:24 | NUR ---
RN NOTE IV SITES REMOVED , PT DISCHARGED AND LEFT THE FLOOR TO MAIN ENTRANCE ACCOMPANIED BY STAFF MEMBER ANS IS SON IN STABLE CONDITION.
== END 2018-01-25 13:32 | disposition home health service (06) | DRG 221 ==
LOC: ER 20:01 → TELE 21:20 → ICU 01-19 02:54 → TELE-TD 01-20 18:47 → MEDSG1 01-24 10:56
PROVIDERS: ADMIT Internal Medicine; ATTEND Internal Medicine
PROC: 0DTN0ZZ Resection of Sigmoid Colon, Open Approach (ICD-10-PCS; principal; 2018-01-19)
PROC: 0D1N0Z4 Bypass Sigmoid Colon to Cutaneous, Open Approach (ICD-10-PCS; principal; 2018-01-19)
DX: K57.20 Diverticulitis of large intestine with perforation and abscess without bleeding (principal); A41.9 Sepsis, unspecified organism; E87.2 Acidosis; E88.09 Other disorders of plasma-protein metabolism, not elsewhere classified; E66.9 Obesity, unspecified; Z68.35 Body mass index [BMI] 35.0-35.9, adult; J98.11 Atelectasis; R73.9 Hyperglycemia, unspecified; K59.00 Constipation, unspecified
CPT/HCPCS: 36415; 71045-TC; 80048-TC; 80053-TC; 80061-TC; 80076-TC; 80202-TC; 82746; 82962-TC; 83605-TC; 83690-TC; 83735-TC; 84100-TC; 84443-TC; 84484-TC; 85025-TC; 85730-TC; 86850-TC; 87040-TC; 87070-TC; 87081-TC; 88305-TC; 88307-TC; A4216; A4217; A4349; A4606; A6209; A6253; A6402; A6403; A6407; A9563; J0690; J1100; J1170; J1650; J1885; J2405; J2543; J2704; J3010; J3370; J3480; J3490; J7030; J7050; J7060; P9045; Q9967; Z7610